=== PATIENT | male | born 1950 | race African-American/Black ===

== ENCOUNTER 2024-04-14 18:58 | Emergency (ER) | payer OTHER, SELFPAY ==
[2024-04-14 19:05] VITALS: BP 136/91
[2024-04-14 19:30] LABS: % Basophils 0.5 % (0-2); % Eosinophils 1.4 % (0-6); % Immature Granulocytes 0.2 % (0-0.5); % Lymphocytes 11.3 % (20.5-51.1); % Neutrophils 74.6 % (42.2-75.2); Absolute Eosinophils 0.1 10^3/uL (0-0.7); Absolute Lymphocytes 0.5 10^3/uL (1.2-3.4); Absolute Monocytes 0.5 10^3/uL (0.1-0.6); Absolute Neutrophils 3.3 10^3/uL (1.4-6.5); Hematocrit 35.1 % (39.0-52.0); Hemoglobin 12.9 g/dL (13.0-18.0); Mean Corp Hgb Conc. 36.8 g/dL (33.0-37.0); Mean Corpuscular Hgb 24.6 pg (27.0-31.0); Nucleated Red Blood Cells % 0.9 % (-); Red Blood Cell Count 5.24 10^6/uL (4.70-6.10); Red Cell Dist. Width 17.1 % (11.5-14.5); White Blood Cell Count 4.4 10^3/uL (4.8-10.8)
[2024-04-14 19:50] LABS: COVID-19 Antigen Negative (Negative)
[2024-04-14 19:51] LABS: ALT (SGPT) 22 U/L (0-50); AST (SGOT) 23 U/L (17-59); Alkaline Phosphatase 63 U/L (38-126); Blood Urea Nitrogen 16 mg/dl (9-20); Calcium 9.4 mg/dl (8.4-10.2); Carbon Dioxide 21 mmol/L (22-30); Chloride 104 mmol/L (98-107); Glucose 113 mg/dl (70-99); Potassium 3.9 mmol/L (3.5-5.1); Sodium 136 mmol/L (135-145); Total Bilirubin 2.2 mg/dl (0.2-1.3); Total Protein 6.8 g/dl (6.3-8.2); eGFR > 60.00
[2024-04-14 20:10] LABS: Platelet Count 56 10^3/uL (130-400)
--- NOTE | 2024-04-14 20:57 | ED.GENMED ---
History of Present Illness
General
Chief Complaint: Weakness
Source: patient
Exam Limitations: none
Time Seen by Provider: 04/14/24 20:35
Nursing documentation reviewed up to this point in time: agreed with
History of Present Illness
History of Present Illness:
74-year-old male past medical history of hypertension presenting to the emergency department today with concerns of bodyaches fevers upper respiratory symptoms nausea vomiting over the past 2 days. Denies any chest pain shortness of breath.
Past History
Past History
ED Past Medical History: HTN
ED Past Surgical History: Tonsilectomy
Social History
Living: with family
Review of Systems
Review of Systems
Allergies reviewed?: Yes
All Other Systems: ROS reviewed and negative except as documented in HPI and ROS
Phy Exam
Physical Exam
Physical Exam:
GENERAL: Alert , in no apparent distress
EYE: pupils equal and reactive
NECK: Supple, no significant adenopathy.
ENT: Swollen boggy nasal turbinates o/p clr, mmm.
CARDIAC: Regular rate and rhythm .
LUNGS: Clear breath sounds bilaterally, no acute respiratory distress, no wheezes/rales/rhonchi
ABDOMEN: Soft, without focal tenderness, no r/g, no cvat
NEUROLOGICAL: Alert and oriented, no focal neuro deficits
SKIN: Warm and dry, skin intact.
MUSCULOSKELETAL: No edema, well perfused.
PSYCH: Normal and appropriate interaction.
Course
Orders/Labs/Results
Orders:
Orders
04/14/24 19:18
COVID-19 Antigen Urgent
Source: Nasal Swab
Complete Blood Count/With Diff Urgent
Comprehensive Metabolic Panel Urgent
Influenza A+B Rapid Molecular Urgent
CALEB Source: Nasal Swab
Specimen Description:
04/14/24 20:43
Ondansetron Orally Disint [Zofran Odt (Orally Disintegrating)] 4 mg PO NOW STA
Abnormal Lab Results
04/14/24
19:18
WBC 4.4 L 10^3/uL
(4.8-10.8)
Hgb 12.9 L g/dL
(13.0-18.0)
Hct 35.1 L %
(39.0-52.0)
MCV 67.0 L fL
(80.0-94.0)
MCH 24.6 L pg
(27.0-31.0)
RDW 17.1 H %
(11.5-14.5)
Plt Count 56 L 10^3/uL
(130-400)
Absolute Lymphs (auto) 0.5 L 10^3/uL
(1.2-3.4)
Lymphocytes % 11.3 L %
(20.5-51.1)
Monocytes % 12.0 H %
(1.7-9.3)
Carbon Dioxide 21 L mmol/L
(22-30)
Glucose 113 H mg/dl
(70-99)
Total Bilirubin 2.2 H mg/dl
(0.2-1.3)
04/14/24 19:18
04/14/24 19:18
Vital Signs
Initial and Last Documented VS:
Initial Vital Signs
Temp Pulse Resp BP Pulse Ox
99.5 F 83 17 136/91 98
04/14/24 19:05 04/14/24 19:05 04/14/24 19:05 04/14/24 19:05 04/14/24 19:05
Last Documented Vital Signs
Temp Pulse Resp BP Pulse Ox
99.5 F 83 17 136/91 98
04/14/24 19:05 04/14/24 19:05 04/14/24 19:05 04/14/24 19:05 04/14/24 19:05
MDM/Problems Addressed
MDM/Problems Addressed:
74-year-old male presenting to the emergency department today with concerns of upper respiratory symptoms and GI symptoms over the past 2 days. He tested positive for the flu today which does explain his symptoms. On his labs he did show evidence
of thrombocytopenia otherwise labs without significant emergent findings. These findings were discussed with the patient who claims that he is aware that he does have a chronically low platelet count. This is monitored as an outpatient. Denies
any bleeding at this point.
*Critical Care Note
Total Time (30-74mins, 75-104mins- exclusive of procedures): Not Applicable
ED Attending Note
-
Portions of this chart may have been created with voice recognition software.� Occasional wrong word or��sound alike� substitutions may have occurred due to the inherent limitations of voice recognition software.
Discharge Plan
Departure
Patient Disposition: Home (Routine Discharge)
Date of Disposition: 04/14/24
Time of Disposition: 21:09
Patient with high blood pressure during this ER visit?: No
Condition: Good
Covid-19: Not Applicable
Discharge Problem:
Influenza
Instructions: Flu
Prescriptions:
New
ondansetron 4 mg tablet,disintegrating
4 mg PO Q6H PRN (Reason: nausea and vomiting) Qty: 4 0RF
guaifenesin 200 mg tablet
400 mg PO Q4H PRN (Reason: Congestion) Qty: 10 0RF
No Action
biotin 5 MG capsule
5 mg PO DAILY
pediatric multivitamin 1 EACH tablet,chewable
1 ea PO DAILY
amlodipine 5 MG tablet
5 mg PO DAILY
hydrochlorothiazide 25 MG tablet
25 mg PO DAILY
coenzyme Q10 [Co Q-10] 200 MG capsule
200 mg PO DAILY
omega-3 fatty acids-fish oil [Fish Oil] 1,000 MG capsule
1 cap PO DAILY
minoxidil [Rogaine] 60 GM foam
60 gm TP DAILY
[id number]-lesv-FA-herbal cmplx#190 [Vitamin D3 Complete] 1 EACH tablet
1 ea PO DAILY
mv, min #36-iron,carbonyl-FA [Geritol Complete] 1 EACH tablet
1 ea PO DAILY
amoxicillin-pot clavulanate 875-125 mg tablet
1 tab PO BID Qty: 14 0RF
Activity Restrictions/Additional Instructions:
74-year-old male presenting to the emergency department today with concerns of symptoms consistent with the flu. You were positive for the flu. Please take the prescribed medications help with symptoms stay hydrated and get plenty of rest.
Symptoms should improve over the next few days. Return for any worsening, new or concerning symptoms.
Interventions
Interventions:
*Risk Screen - Suicide Last Done: 04/14/24 19:07
*General Assessment Last Done: 04/14/24 19:07
*Neglect/Abuse Screening Last Done: 04/14/24 19:07
*ED COVID-19 Vaccine History Last Done: 04/14/24 19:07
Discharge Date and Time
Print Language: KHMER
[2024-04-14] MEDS: ZOFRAN ODT (ORALLY DISINTEGRATING) 4 MG PO (21:01)
[2024-04-14 21:18] VITALS: BP 144/91
== END 2024-04-14 21:15 | disposition home or self-care (01) ==
LOC: EMR 18:58
PROVIDERS: Emergency Medicine; EMERGENCY PHYSICIAN Emergency Medicine; FAMILY PHYSICIAN Family Medicine
DX: J10.1 Influenza due to other identified influenza virus with other respiratory manifestations (principal); I10 Essential (primary) hypertension; D69.6 Thrombocytopenia, unspecified
CPT/HCPCS: 99283; 80053; 85025; 87502; 87811